=== PATIENT | male | born 1945 | race Native Hawaiian/Other Pacific Islander ===

== ENCOUNTER → 2016-10-09 16:49 | Outpatient (CLI) | payer OTHER ==
[~2016-10-09 16:49] MED LIST: ALLO300T23 PO; AMBIEN5 MG PO; AMIT10TA21 PO; AMITRIPTYLIN50 MG PO; ASA LO-DOSE81 MG PO; BENICAR20 MG PO; BENICAR40 MG PO; BRILINTA90 MG PO; CARV12.5 PO; CLON0.5T36 PO; CYCL10TA35 PO; EDLUAR10 MG PO; FURO40TA93 PO; GLIM4TAB PO; HYDR10TA47 PO; KLOR-CON M2020 MEQ PO; LIPITOR20 MG PO; METF100038 OR; METOPROLOL25 M1 PO; NITR0.4S2 SL; PRAS10TA PO; VIT B12 ER1000 MCG PO; VIT E COMPL1000 UNIT PO; VITAMIN D1000 UNI1 PO; ZANAFLEX2 MG PO
== END | disposition home or self-care (01) ==
LOC: AMB 16:49
DX: R06.02 Shortness of breath (principal)

== ENCOUNTER 2016-12-25 16:32 | Emergency (ER) | payer OTHER ==
[~2016-12-25] VITALS: Ht 172.7 cm; Wt 90.7 kg
[2016-12-25 16:32] VITALS: BP 106/50; TEMP 97
[2016-12-25 17:07] LABS: PLATELET COUNT 246 K/uL (142-355)
[2016-12-25 17:11] LABS: POTASSIUM 4.6 mmol/L (3.6-5.2)
== END 2016-12-25 18:44 | disposition expired ==
LOC: ED 16:32
PROVIDERS: Specialist
PROC: 0T9B70Z Drainage of Bladder with Drainage Device, Via Natural or Artificial Opening (ICD-10-PCS; principal; 2016-12-25)
DX: I21.3 ST elevation (STEMI) myocardial infarction of unspecified site (principal)
CPT/HCPCS: 36600; 43754; 51702; 80053; 82550; 82805; 84484; 85027; 85610; 85730; 92950; 93005; 96365; 96366; 96372; 96375; 96376; 99291; 99292; J0171; J0461; J1265; J1644; J3101; J3490